=== PATIENT | male | born 1960 | race Caucasian/White ===

== ENCOUNTER 2016-10-01 12:38 | Emergency (ER) | payer MEDICARE, OTHER ==
--- NOTE | 2016-10-01 12:50 | ED ---
General Adult HPI - General Stated complaint: unresponsive Time Seen by Provider: 10/01/16 12:40 Source: EMS, RN notes reviewed Mode of arrival: EMS Limitations: altered mental status, physical limitation - History of Present Illness Initial comments: Patient is unresponsive 56-year-old male presenting by EMS for cardiac arrest. Patient is unresponsive and provides no history. CPR is in progress. Patient reportedly was walking down the side of the road in a bystander noticed some not looking well. Patient did complain of dizziness. EMS arrived at total 5 and patient did have an pulse with agonal breathing. 1206 patient lost his pulse. No further history is available. No family is available. No emergency contact listed. Review of Systems ROS Statement: Those systems with pertinent positive or pertinent negative responses have been documented in the HPI. ROS Other: All systems not noted in ROS Statement are negative. Limitations: ROS unobtainable due to patients medical condition Past Medical History Past Medical History: Unable to Obtain History of Any Multi-Drug Resistant Organisms: Unobtainable Past Surgical History: Unable to Obtain Past Anesthesia/Blood Transfusion Reactions: Unable to Obtain Past Psychological History: Unable to Obtain Past Alcohol Use History: Unable to Obtain Past Drug Use History: Unable to Obtain General Exam Limitations: altered mental status, physical limitation General appearance: obese Head exam: Present: atraumatic Eye exam: Present: conjunctival injection, other (Pupils fixed and dilated) ENT exam: Present: other (Intubated) Neck exam: Present: normal inspection Respiratory exam: Present: other (No spontaneous breath sounds. Equal breath sounds with bagging insufflation.) Cardiovascular Exam: Present: other (No spontaneous pulse. No spontaneous heart sounds.) GI/Abdominal exam: Absent: tenderness Extremities exam: Present: normal inspection Neurological exam: Present: other (Unresponsive) Psychiatric exam: Present: other (Unresponsive) Skin exam: Present: cyanosis Course - Reevaluation(s) Reevaluation #1: 10/01/16 12:49 At 1242 patient continues to have no pulse. No heart sounds. Asystole on the monitor. No breath sounds. Pupils are fixed and dilated. Time of is 1242. No family is present. 10/01/16 13:01 Case was discussed in detail with Dr. Leach who is not familiar with this patient however will sign the certificate. Case also discussed with Olga , medical/surgery registered nurse who will do further investigation. Attempts are being made to contact family. Disposition Clinical Impression: Cardiopulmonary arrest Disposition: Time of Disposition: 13:02 Preliminary Cause of : Cardiopulmonary arrest
[2016-10-01] MEDS ORDERED: SODIUM BICARB 8.4% 50 ML SYR (1 MEQ/ML) ONE (13:52)
[2016-10-01] MEDS ORDERED: EPINEPHrine 10 ML SYRINGE (0.1 MG/ML) ONE (13:52)
== END 2016-10-01 13:46 | disposition expired ==
LOC: EC 12:38
DX: I46.9 Cardiac arrest, cause unspecified (principal)
CPT/HCPCS: 99285; 92950; J0171